=== PATIENT | female | born 1990 | race Caucasian/White ===

== ENCOUNTER 2021-01-26 13:12 | Emergency (ER) | payer OTHER ==
[~2021-01-26] VITALS: Ht 170.2 cm; Wt 56.7 kg
[2021-01-26] MEDS ORDERED: DEXAMETHASONE SOD PHOSPHATE 4 MG INJ IM ONE (13:45)
[2021-01-26] MEDS ORDERED: DEXAMETHASONE SOD PHOSPHATE 4 MG INJ ONE (13:53)
[2021-01-26] MEDS ORDERED: GABA-532 PO (13:56)
[2021-01-26] MEDS ORDERED: IBUP-1955 PO (13:56)
--- NOTE | 2021-01-26 14:02 | NUR ---
Patient discharged to home in stable condition with slow steady gait. Written and verbal after care instructions given to patient and family. Patient and family verbalized understanding & compliance of instructions. Stressed follow up with her primary doctor and pain management doctor or return to ER for worsening s/s.
[2021-01-26] MEDS ORDERED: LIDO30AD10 TD (14:11)
== END 2021-01-26 14:09 | disposition home or self-care (01) ==
LOC: ER 13:16
DX: M51.16 Intervertebral disc disorders with radiculopathy, lumbar region (principal); G89.29 Other chronic pain
CPT/HCPCS: 96372; 99283; J1100; A4663

== ENCOUNTER 2021-10-27 04:12 | Emergency (ER) | payer OTHER ==
[~2021-10-27] VITALS: Ht 165.1 cm; Wt 55.8 kg
[~2021-10-27 04:12] MED LIST: GABA-532 PO; IBUP-1955 PO; LIDO30AD10 TD
--- NOTE | 2021-10-27 04:22 | NUR ---
pt in room 5 c/o low back pain and pain on urination.
[2021-10-27] MEDS ORDERED: PANTOPRAZOLE SODIUM 40 MG TABLET.DR PO ONE ×2 (04:45→04:53)
[2021-10-27] MEDS ORDERED: MELOXICAM 7.5 MG TABLET PO SCH (04:45)
[2021-10-27] MEDS ORDERED: predniSONE 50 MG TABLET PO ONE (04:45)
[2021-10-27] MEDS ORDERED: predniSONE 50 MG TABLET ONE (04:53)
[2021-10-27 05:11] LABS: *BILIRUBIN,URIN NEGATIVE (NEGATIVE); *BLOOD, URINE 2+ (NEGATIVE); *COLOR,URINE YELLOW (YELLOW); *KETONES,URINE NEGATIVE (NEGATIVE); *UROBILINOGEN,URINE 0.2 E.U./dl (NORMAL); LEUKOCYTE ESTERASE ,URINE 1+ (NEGATIVE); NITRITE, URINE NEGATIVE (NEGATIVE); PH,URINE 6.5 (5.0-8.0); UGLUCOSE NEGATIVE (NEGATIVE)
[2021-10-27 05:15] LABS: *CLARITY,URINE HAZY (CLEAR)
[2021-10-27 05:16] LABS: *URINE HCG, QUAL NEGATIVE (NEGATIVE); BACTERIA,URINE MODERATE /HPF (NONE SEEN); RBC,URINE 20-50 /HPF (0-3); SQUAMOUS EPITHELIAL CELL,UR MODERATE /HPF (NONE SEEN); WBC,URINE 20-50 /HPF (0-3)
[2021-10-27] MEDS ORDERED: NITROFURANTOIN/NITROFURAN MAC 100 MG CAPSULE PO ONE ×2 (05:23→05:30)
[2021-10-27] MEDS ORDERED: PRED20TA PO (05:24)
[2021-10-27] MEDS ORDERED: NITR-84 PO (05:24)
[2021-10-27] MEDS ORDERED: MELO-107 PO (05:24)
[2021-10-27 05:32] VITALS: BP 105/65
--- NOTE | 2021-10-27 05:32 | NUR ---
Patient discharged to home in stable condition. Written and verbal after care instructions given. Patient verbalizes understanding of instructions. Stressed follow up or return to ER for worsening s/s.
== END 2021-10-27 05:32 | disposition home or self-care (01) ==
LOC: ER 04:17
DX: N30.90 Cystitis, unspecified without hematuria (principal); G89.29 Other chronic pain; M54.9 Dorsalgia, unspecified; Z20.2 Contact with and (suspected) exposure to infections with a predominantly sexual mode of transmission
CPT/HCPCS: 84703; 87077; 87086; A4663; J7512

== ENCOUNTER 2021-12-14 16:43 | Emergency (ER) | payer OTHER ==
[~2021-12-14] VITALS: Ht 167.6 cm; Wt 54.4 kg
[~2021-12-14 16:43] MED LIST changes: +MELO-107 PO; +NITR-84 PO; +PRED20TA PO
[2021-12-14] MEDS ORDERED: ONDANSETRON 4 MG/2 ML VIAL IV ONE (17:00)
[2021-12-14] MEDS ORDERED: IV NORMAL SALINE 1000 ML BAG IV ONE (17:00)
[2021-12-14] MEDS ORDERED: diphenhydrAMINE 50 MG/1 ML VIAL IV ONE (17:00)
[2021-12-14] MEDS ORDERED: KETOROLAC TROMETHAMINE 15 MG INJ IVP ONE (17:00)
--- NOTE | 2021-12-14 17:00 | NUR ---
MD at bedside, medical screening exam in progress.
[2021-12-14] MEDS ORDERED: diphenhydrAMINE 50 MG/1 ML VIAL ONE (17:13)
[2021-12-14] MEDS ORDERED: ONDANSETRON 4 MG/2 ML VIAL ONE (17:14)
[2021-12-14] MEDS ORDERED: KETOROLAC TROMETHAMINE 15 MG INJ ONE (17:15)
[2021-12-14 17:50] LABS: CREATININE 0.6 mg/dL (0.6-1.3); POTASSIUM 4.1 mmol/L (3.5-5.1)
[2021-12-14 17:52] LABS: HEMATOCRIT 33.3 % (31.2-41.9); MEAN CORPUSCULAR HEMOGLOBIN 19.7 uug (24.7-32.8); MEAN CORPUSCULAR VOLUME 61.1 fL (75.5-95.3); PLATELET COUNT (AUTO) 238 K/uL (179-408)
[2021-12-14 17:56] LABS: BILIRUBIN,DIRECT 0.2 mg/dL (0.0-0.2); BILIRUBIN,TOTAL 0.8 mg/dL (0.2-1.0); TOTAL PROTEIN, SERUM 8.1 g/dL (6.4-8.2)
[2021-12-14 18:11] LABS: *BILIRUBIN,URIN NEGATIVE (NEGATIVE); *BLOOD, URINE NEGATIVE (NEGATIVE); *CLARITY,URINE CLEAR (CLEAR); *COLOR,URINE YELLOW (YELLOW); *KETONES,URINE 4+ (NEGATIVE); *UROBILINOGEN,URINE 0.2 E.U./dl (NORMAL); LEUKOCYTE ESTERASE ,URINE 1+ (NEGATIVE); NITRITE, URINE NEGATIVE (NEGATIVE); PH,URINE 5.5 (5.0-8.0); UGLUCOSE NEGATIVE (NEGATIVE)
[2021-12-14] MEDS ORDERED: diphenhydrAMINE 50 MG/1 ML VIAL IM ONE (18:15)
[2021-12-14] MEDS ORDERED: ONDA8TAB13 PO ×2 (18:23→19:44)
[2021-12-14 18:25] LABS: *URINE HCG, QUAL NEGATIVE (NEGATIVE)
[2021-12-14] MEDS ORDERED: CEPH500C2 PO ×2 (18:36→19:44)
[2021-12-14 18:57] VITALS: BP 105/70
[2021-12-14 21:21] LABS: BACTERIA,URINE MA /HPF (NONE SEEN); MUCUS,URINE FEW /LPF (0-FEW); RBC,URINE 0-3 /HPF (0-3); SQUAMOUS EPITHELIAL CELL,UR MANY /HPF (NONE SEEN)
== END 2021-12-14 18:58 | disposition home or self-care (01) ==
LOC: ER 16:44
DX: B34.9 Viral infection, unspecified (principal); Z20.822 Contact with and (suspected) exposure to COVID-19; N39.0 Urinary tract infection, site not specified
CPT/HCPCS: 36415; 80048; 80076; 81001; 83690; 84703; 85025; 86403; 87070; 87086; 87400; 87426; 96361; 96374; 96375; 99284; J1200; J1885; J2405; J7040; A4663

== ENCOUNTER 2022-02-13 12:04 | Emergency (ER) | payer OTHER ==
[~2022-02-13] VITALS: Ht 167.6 cm; Wt 58.1 kg
[~2022-02-13 12:04] MED LIST changes: +CEPH500C2 PO; +ONDA8TAB13 PO
[2022-02-13] MEDS ORDERED: IV NORMAL SALINE 500 ML BAG IV ONE (12:15)
[2022-02-13] MEDS ORDERED: ONDANSETRON 4 MG/2 ML VIAL IV ONE (12:15)
--- NOTE | 2022-02-13 12:29 | NUR ---
DR IVEY AT BEDSIDE FOR EVALUATION. SALINE LOCK PLACED. IV INFUSION INITIARED. SWAB SPECIMEN AOOBTAINED FOR COVID TEST AND SENT TO LAB.
[2022-02-13] MEDS ORDERED: ONDANSETRON 4 MG/2 ML VIAL ONE (12:32)
[2022-02-13 12:36] LABS: HEMATOCRIT 32.7 % (31.2-41.9); MEAN CORPUSCULAR HEMOGLOBIN 19.9 uug (24.7-32.8); MEAN CORPUSCULAR VOLUME 61.7 fL (75.5-95.3); PLATELET COUNT (AUTO) 208 K/uL (179-408)
[2022-02-13] MEDS ORDERED: MAGNESIUM SULFATE/D5W 100 ML ONE (12:39)
[2022-02-13] MEDS ORDERED: KETOROLAC TROMETHAMINE 15 MG INJ ONE (12:39)
[2022-02-13] MEDS ORDERED: KETOROLAC TROMETHAMINE 15 MG INJ IVP ONE (12:45)
[2022-02-13] MEDS ORDERED: MAGNESIUM SULFATE/D5W 100 ML IV SCH (12:45)
[2022-02-13 12:50] LABS: ALANINE AMINOTRANSFERASE 13 U/L (14-59); ALKALINE PHOSPHATASE 66 U/L (50-136); ASPARTATE AMINOTRANSFERASE 14 U/L (15-37); BILIRUBIN,TOTAL 0.6 mg/dL (0.2-1.0); CARBON DIOXIDE 28 mmol/L (21-32); CHLORIDE 102 mmol/L (98-107); CREATININE 0.7 mg/dL (0.6-1.3); GLUCOSE 99 mg/dL (74-106); LIPASE 109 U/L (73-393); UREA NITROGEN, BLOOD 10 mg/dL (7-18)
--- NOTE | 2022-02-13 14:22 | NUR ---
PT WAS D/C'd TO HOME. D/C INSTRUCTIONS GIVEN TO THE PT BY DR IVEY.
[2022-02-13 14:23] VITALS: BP 133/74
== END 2022-02-13 14:25 | disposition home or self-care (01) ==
LOC: ER 12:04
DX: U07.1 COVID-19 (principal); R51.9 Headache, unspecified; R11.2 Nausea with vomiting, unspecified; D50.9 Iron deficiency anemia, unspecified
CPT/HCPCS: 99284; 96365; 96375; 87426; 80053; 83690; 85025; 84702; 36415; J1885; J3475; J2405; J7040; A4663

== ENCOUNTER 2022-10-08 23:04 | Emergency (ER) | payer OTHER ==
--- NOTE | 2022-10-08 23:15 | NUR ---
Patient's name called, no response.
--- NOTE | 2022-10-08 23:48 | NUR ---
Called patient's name in waitimg room and outside of er front door, no response.
== END 2022-10-08 23:58 | disposition left against medical advice (07) ==
LOC: ER 23:09
DX: Z53.21 Procedure and treatment not carried out due to patient leaving prior to being seen by health care provider (principal)